=== PATIENT | male | born 1985 | race Caucasian/White ===

== ENCOUNTER → 2022-10-01 07:55 | Outpatient (BNVA) | payer OTHER, SELFPAY | PROVIDERS: PCP Family Medicine; Visit Provider Nurse Practitioner Family | DX: R06.83 Snoring (principal); R40.0 Somnolence | CPT/HCPCS: 99202 ==

== ENCOUNTER → 2022-11-19 09:09 | Outpatient (REF) | payer OTHER, SELFPAY | LOC: HO.SL 09:09 | PROVIDERS: PCP Family Medicine; Visit Provider Nurse Practitioner Family | DX: G47.33 Obstructive sleep apnea (adult) (pediatric) (principal); R40.0 Somnolence; R06.83 Snoring | CPT/HCPCS: 95806 ==

== ENCOUNTER → 2022-11-19 09:20 | Outpatient (BNV) | payer OTHER, SELFPAY | PROVIDERS: PCP Family Medicine; Visit Provider Internal Medicine | DX: G47.33 Obstructive sleep apnea (adult) (pediatric) (principal) | CPT/HCPCS: 95806 ==

== ENCOUNTER 2023-01-28 11:25 | Outpatient (AMB) | payer OTHER, SELFPAY ==
--- NOTE | 2023-01-28 11:29 | MHC.OFFVIS ---
Intake Vital Signs 01/28/23 11:31 Weight 215 lb 6 oz BP 110/68 Blood Pressure Location Rt brachial Position Sitting Pulse 75 Pulse Source Pulse Oximeter Pulse Oximetry (%) 98 Oxygen Delivery Method Room Air Intake Visit Reasons: 2m follow up snoring - confirmed Intake Note: Follow up malgorzata [employer] Lead Required: No Allergies No Known Allergies Allergy (Verified 01/28/23 11:30) HPI HPI Comments History of Present Illness Details 37 y/o male patient presents for follow up of sleep study. The home sleep study result was significant for moderate degree of sleep apnea. The AHI was 16/hr and oxygen joana was 79%. The total duration of O2 sat below 88% was 7 min. Pt started APAP [id number]. The CPAP compliance and therapy response (12/29/22-01/27/23) reviewed. The usage days 97% and the average usage hours 7 hrs and 48 min. The max pressure is 11 and AHI was 6/hr. Pt reports he sleeps better with CPAP for 7-8 hours, feels more refreshed. Daytime sleepiness has improve. [facility] Surgical History (Updated 10/01/22 @ 08:05 by Samina Heard CMA) H/O knee surgery Social History (Updated 01/28/23 @ 11:30 by Samina Heard CMA) Housing: House Alcohol intake: current Patient Tobacco Use Status: Never used Tobacco e-Cigarette/Vaping Use: Never Used service: Yes Current occupational status: employed Current occupation: [employer] Cognitive needs: No Hearing needs: No Vision needs: No Review of Systems Const All systems reviewed & are unremarkable except as noted in HPI and below ENT Reports Normal hearing present Neuro Reports Normal hearing present Physical Exam Vital Signs: Last Vital Signs Pulse 75 01/28/23 11:31 BP 110/68 01/28/23 11:31 Pulse Ox 98 01/28/23 11:31 Oxygen Delivery Method Room Air 01/28/23 11:31 Const General: cooperative and healthy appearing Nutritional Appearance: average body habitus Orientation/consciousness: patient oriented x3 Limitations: no limitations HEENT Throat: Yes other (mallampati grade 2) Neck Neck: Yes full ROM and Yes supple Resp Effort & Inspection: normal respiratory effort and able to speak in complete sentences Neuro General: patient oriented x3, gait normal, tone normal and moves all extremities Cranial nerves: Yes Bilaterally intact EOM present, Yes Normal facial strength present, Yes Midline tongue present, Yes Symmetric palate elevation present, Yes Normal hearing present, Yes Ability to bilaterally rotate head present and Yes Ability to bilaterally elevate shoulders present Cognition (Neuro): normal cognition Gait exam (Neuro): Normal gait present Motor exam (neuro): 5/5 motor strength present throughout, Pronator motor function not present and no tremor noted Psych Appearance: grossly normal Mental Status: mental status grossly normal Speech and movement: Normal speech and movement present Affect: normal affect Attitude: cooperative Assessment & Plan Assessment & Plan (1) MALGORZATA on CPAP: Comment: A moderate degree of sleep apnea. The AHI was 16/hr and oxygen joana was 79%. Code(s): G47.33 - Obstructive sleep apnea (adult) (pediatric) Plan Advised patient to continue to use APAP [id number] as patient experiences good clinical effects including improved sleep quality and daytime sleepiness has improved. Stressed compliance, use CPAP nightly and more than 4 hrs. Coding Level of Care Code Est Pt Level 3 (93879) Diagnoses MALGORZATA on CPAP G47.33
[2023-01-28 11:31] VITALS: BP 110/68; PULSE 75; O2SAT 98
== END 2023-01-28 11:49 | disposition home or self-care (01) ==
PROVIDERS: PCP Internal Medicine; Visit Provider Nurse Practitioner Family
DX: G47.33 Obstructive sleep apnea (adult) (pediatric) (principal)
CPT/HCPCS: 99213

== ENCOUNTER → 2023-01-28 11:25 | Outpatient (BNVA) | payer OTHER, SELFPAY | PROVIDERS: Visit Provider Nurse Practitioner Family | DX: G47.33 Obstructive sleep apnea (adult) (pediatric) (principal) | CPT/HCPCS: 99212 ==

== ENCOUNTER 2024-02-18 11:50 | Outpatient (REF) | payer OTHER, SELFPAY ==
[2024-02-18 19:07] LABS: Influenza A PCR NEGATIVE (Negative); Influenza B PCR NEGATIVE (Negative); Resp Syncy Virus RNA Qual PCR NEGATIVE (Negative); SARS COV2 PCR INHOUSE NEGATIVE (Negative)
== END 2024-02-18 11:51 | disposition home or self-care (01) ==
LOC: HO.LAB 11:50
PROVIDERS: Physician Assistant; PCP Internal Medicine
DX: J06.9 Acute upper respiratory infection, unspecified (principal)
CPT/HCPCS: 0241U; 99212

== ENCOUNTER 2024-02-18 11:50 | Outpatient (AMB) | payer OTHER, SELFPAY ==
--- NOTE | 2024-02-18 11:55 | AM.OFFWIN_ITS ---
Intake Vital Signs 02/18/24 11:58 Height 6 ft Weight 205 lb BMI 27.8 BP 138/90 H Blood Pressure Location Lt brachial Position Sitting Pulse 85 Pulse Source Pulse Oximeter Temp 98.8 F Temp Source Oral Pulse Oximetry (%) 98 Oxygen Delivery Method Room Air Intake Visit Reasons: EP Congestion, head pressure Intake Note: Patient here for head pressure, congestion and slight nausea that started yesterday. Patient Tobacco Use Status: Never used Tobacco Allergies No Known Allergies Allergy (Verified 02/18/24 11:59) Do you need a note to return to daycare/school/sports/work: Yes HPI HPI Comments History of Present Illness Details Patient is a 38-year-old male complaining of 1 day of some nasal congestion, fatigue, head pressure and slight nausea. He denies sore throat, fevers, sinus pain, ear pain or headaches. He has not taken any medications to try to make himself feel better. He has not tested for COVID at home. He tells me his is sick with a migraine and some similar symptoms in his son was just diagnosed with an ear infection. He does tell me wanted his work colleagues just returned from having strep throat. [facility] Surgical History (Updated 10/01/22 @ 08:05 by Samina Heard CMA) H/O knee surgery Social History (Updated 01/28/23 @ 11:30 by Samina Heard CMA) Housing: House Alcohol intake: current Patient Tobacco Use Status: Never used Tobacco e-Cigarette/Vaping Use: Never Used service: Yes Current occupational status: employed Current occupation: [employer] Cognitive needs: No Hearing needs: No Vision needs: No Review of Systems Const All systems reviewed & are unremarkable except as noted in HPI and below Physical Exam Vital Signs: Last Vital Signs Temp 98.8 F 02/18/24 11:58 Pulse 85 02/18/24 11:58 BP 138/90 H 02/18/24 11:58 Pulse Ox 98 02/18/24 11:58 Oxygen Delivery Method Room Air 02/18/24 11:58 BMI result Body Mass Index 27.8 Const General: cooperative, healthy appearing, comfortable and no acute distress Orientation/consciousness: patient oriented x3 Limitations: no limitations HEENT Head: Yes normal to inspection Ears: hearing grossly normal bilaterally, external ears normal and TM's normal bilaterally General nose exam: Normal external nose present, Normal nares present and No nasal discharge present Face and sinus: Yes normal facial exam and Yes sinuses nontender Mouth: Normal oral and palatal mucosa present and moist mucous membranes Throat: Yes tonsils normal, Yes uvula midline and Yes posterior oropharynx abnormal (Erythema; exudates on left) Eyes General: appearance normal, both eyes and all related structures Neck Neck: Yes normal visual inspection Resp Effort & Inspection: normal respiratory effort, able to speak in complete sentences, no respiratory distress, not tachypneic, no tripod positioning and no use of accessory muscles Auscultation: clear to auscultation bilaterally Cardio Rate: regular rate Rhythm: regular rhythm Heart sounds: normal S1 and S2 Skin General skin exam: no rashes or lesions noted Neuro General: patient oriented x3 Extrem General: Yes normal to inspection and Yes no clubbing, cyanosis or edema Assessment & Plan Assessment & Plan (1) Strep pharyngitis: Code(s): J02.0 - Streptococcal pharyngitis Plan: Rapid strep is negative however as patient did have an exposure at work and there exudates on his tonsils, Centor Score 2 (11-17% probability of strep) but has only been sick since last night, we will prescribe amoxicillin. We had already sent flu COVID and RSV test. Plan See above Orders: Orders SARS-CoV2/FLU/RSV Today J06.9 - Acute upper respiratory infection, unspecified AMB Rapid Strep Screen Today Z13.9 - Encounter for screening, unspecified Medications: New amoxicillin 500 mg PO Q12H 20 tabs 0RF Coding Level of Care Code Est Pt Level 3 (66441) Diagnoses Strep pharyngitis J02.0
[2024-02-18 11:58] VITALS: BP 138/90; PULSE 85; TEMP 37.1; O2SAT 98; BMI 27.8
== END 2024-02-18 12:25 | disposition home or self-care (01) ==
PROVIDERS: PCP Internal Medicine; Visit Provider Physician Assistant
DX: J02.0 Streptococcal pharyngitis (principal)

== ENCOUNTER 2024-03-22 15:38 | Outpatient (AMB) | payer OTHER, SELFPAY ==
[2024-03-22 15:40] VITALS: BMI 27.8
--- NOTE | 2024-03-22 15:40 | A.OFFVIS_ITS ---
Vital Signs 03/22/24 15:40 Height 6 ft Weight 205 lb BMI 27.8 Intake Visit Reasons: 1 yr f/u-Snoring Intake Note: Patient presents for snoring Allergies No Known Allergies Allergy (Verified 03/22/24 15:41) Medication List - Last Reconciled 03/22/24 by Billie Lao PA-C amoxicillin 500 mg PO Q12H HPI Comments Details: 37 y/o male patient presents for follow up of sleep apnea. The home sleep study result was significant for moderate degree of sleep apnea, Feb 2023. The AHI was 16/hr and oxygen joana was 79%. The total duration of O2 sat below 88% was 7 min. Pt started APAP [id number]. The CPAP compliance and therapy response (12/23/2023- 03/21/24) reviewed. The usage days 67% and the average usage hours 5 hrs and 23 min. The max pressure is 10.5 and AHI was 5.1/hr. Pt reports he sleeps better with CPAP for 7-8 hours, feels more refreshed. Daytime sleepiness has improve, snoring has significantly decreased. Denies headaches, parasomnias, restless leg activity. The pressures are good, he cleans the mask daily, changes filters and uses distilled water. He had strep Feb and did not use the CPAP for that one week. REPLACED BY [facility] Surgical History H/O knee surgery Social History Housing: House Alcohol intake: current Patient Tobacco Use Status: Never used Tobacco e-Cigarette/Vaping Use: Never Used service: Yes Current occupational status: employed Current occupation: [employer] Cognitive needs: No Hearing needs: No Vision needs: No Review of Systems Const All systems reviewed & are unremarkable except as noted in HPI and below Physical Exam Vital Signs: BMI result Body Mass Index 27.8 Const General: cooperative, comfortable and no acute distress Nutritional Appearance: average body habitus Orientation/consciousness: patient oriented x3 HEENT Face and sinus: Yes normal facial exam and Yes face symmetric Eyes Pupils: Equal, round and reactive pupils present, Pupils normal by confrontation and Pupil accommodation reflex normal Neck Neck: Yes full ROM and Yes supple Resp Effort & Inspection: normal respiratory effort and able to speak in complete sentences Neuro General: patient oriented x3 Cranial nerves: Yes Equal, round and reactive pupils present, Yes Normal accommodation reflex present, Yes Normal facial strength present, Yes Midline tongue present, Yes Symmetric palate elevation present, Yes Ability to bilaterally rotate head present and Yes Ability to bilaterally elevate shoulders present Gait exam (Neuro): Normal gait present Motor exam (neuro): 5/5 motor strength present throughout Assessment & Plan Assessment & Plan (1) ELLEN on CPAP: Comment: A moderate degree of sleep apnea. The AHI was 16/hr and oxygen joana was 79%. Code(s): G47.33 - Obstructive sleep apnea (adult) (pediatric) Category: Medical Plan Continue CPAP use daily for moderate sleep apnea as patient is experiencing good clinical effects Follow up in a year or call the office if you have any questions. Contact [facility] for additional supplies. Coding Level of Care Code Est Pt Level 3 (78512) Diagnoses ELLEN on CPAP G47.33
== END 2024-03-22 16:09 | disposition home or self-care (01) ==
PROVIDERS: PCP Family Medicine; Visit Provider Physician Assistant Medical
DX: G47.33 Obstructive sleep apnea (adult) (pediatric) (principal)
CPT/HCPCS: 99213

== ENCOUNTER → 2024-03-22 15:38 | Outpatient (BNVA) | payer OTHER, SELFPAY | PROVIDERS: Absent Provider Psychiatry & Neurology Neurology; PCP Family Medicine; Visit Provider Psychiatry & Neurology Neurology | DX: G47.33 Obstructive sleep apnea (adult) (pediatric) (principal) | CPT/HCPCS: 99212 ==

== ENCOUNTER 2024-05-17 11:23 | Outpatient (AMB) | payer OTHER, SELFPAY ==
--- NOTE | 2024-05-17 12:05 | AM.OFFWIN_ITS ---
Intake Vital Signs 05/17/24 12:06 Height 6 ft Weight 205 lb BMI 27.8 BP 138/90 H Blood Pressure Location Rt brachial Position Sitting Pulse 87 Pulse Source Pulse Oximeter Temp 98.1 F Temp Source Oral Pulse Oximetry (%) 97 Oxygen Delivery Method Room Air Intake Visit Reasons: EP-upper respiratory infection Intake Note: Patient here cough, congestion, SOB, slight wheezing,chills which has been ongoing for about 1 1/2 week. Patient Tobacco Use Status: Never used Tobacco Allergies No Known Allergies Allergy (Verified 05/17/24 12:07) Do you need a note to return to daycare/school/sports/work: Yes HPI HPI Comments History of Present Illness Details History - The patient is a 38-year-old male pres enting with upper respiratory symptoms, cough, and shortness of breath persisting for 10 days. - Symptoms initially improved but became worse, manifesting as a persistent cough that disrupts sleep and causes chest congestion. - Mild shortness of breath and slight wh eezing are reported. - The patient denies asthma or Chronic O bstructive Pulmonary Disease (COPD) h istory and has not observed a fever. - DayQuil and other [id number] med ications provided minimal relief. - The patient denies significant headach es, sinus pain, or ear pain, but notes a general sensation of congestion. Physical Exam General: Cooperative, healthy appearing, comfortable and no acute distress Orientation/consciousness: Patient oriented x3 Limitations: No limitations Head: Normal to inspection Ears: Hearing grossly normal bilaterally, external ears normal and TM's normal right, scant fluid left TM Nose: Normal external nose present, Normal nares present and No nasal discharge present Face and sinus: Normal facial exam and Yes sinuses nontender Mouth: Normal oral and palatal mucosa present and moist mucous membranes Throat: Yes tonsils normal, Yes uvula midline. Posterior oropharynx erythema Eyes: Appearance normal, both eyes and all related structures Neck: Normal visual inspection Respiratory: Clear to auscultation bilaterally. Normal respiratory effort, able to speak in complete sentences, Actively coughing, no respiratory distress, not tachypneic, no tripod positioning and no use of accessory muscles Cardiovascular: Regular rate and rhythm. Normal S1 and S2 Skin: No rashes or lesions noted Neuro: Patient oriented x3 Extremities: Normal to inspection and Yes no clubbing, cyanosis or edema [facility] Surgical History H/O knee surgery Social History Housing: House Alcohol intake: current Patient Tobacco Use Status: Never used Tobacco e-Cigarette/Vaping Use: Never Used service: Yes Current occupational status: employed Current occupation: [employer] Cognitive needs: No Hearing needs: No Vision needs: No Review of Systems Const All systems reviewed & are unremarkable except as noted in HPI and below Physical Exam Vital Signs: Last Vital Signs Temp 98.1 F 05/17/24 12:06 Pulse 87 05/17/24 12:06 BP 138/90 H 05/17/24 12:06 Pulse Ox 97 05/17/24 12:06 Oxygen Delivery Method Room Air 05/17/24 12:06 BMI result Body Mass Index 27.8 Assessment & Plan Assessment & Plan (1) Lower respiratory infection (e.g., bronchitis, pneumonia, pneumonitis, pulmonitis): Code(s): J22 - Unspecified acute lower respiratory infection Plan: Plan Testing for influenza, COVID-19, and Respiratory Syncytial Virus RSV was conducted to identify any viral cause. A prescription for a Z-Adán Azithromycin was given to address potential walking pneumonia, with its dual role as an antimicrobial and an anti-inflammatory agent. To aid in breathing and further alleviate shortness of breath, a tapering course of steroids was advised. Tessalon Perles were prescribed for cough management during the night. The patient was instructed to take a decongestant during the day and prioritize hydration and rest. Sick leave for at least a day was recommended to allow recovery and prevent transmission to others. Patient was informed and verbally consented to the use of an ambient scribe for clinic note documentation during this visit Orders: Orders SARS-CoV2/FLU/RSV Today R09.89 - Other specified symptoms and signs involving the circulatory and respiratory systems Medications: New azithromycin For 250 mg dose pack: take 500 mg today (day 1), then 250 mg for 4 days (days 2-5) PO 6 tabs 0RF methylprednisolone PO PER PKG DIR for 6 days 21 ea 0RF benzonatate 200 mg PO TID PRN 14 caps 0RF cough Coding Level of Care Code Est Pt Level 4 (57665) Diagnoses Lower respiratory infection (e.g., bronchitis, pneumonia, pneumonitis, pulmonitis) J22
[2024-05-17 12:06] VITALS: BP 138/90; PULSE 87; TEMP 36.7; O2SAT 97; BMI 27.8
== END 2024-05-17 12:26 | disposition home or self-care (01) ==
PROVIDERS: PCP Family Medicine; Visit Provider Physician Assistant
DX: J22 Unspecified acute lower respiratory infection (principal)

== ENCOUNTER 2025-03-21 15:48 | Outpatient (AMB) | payer OTHER, SELFPAY ==
[2025-03-21 15:49] VITALS: BP 136/84; PULSE 88; O2SAT 98; BMI 29.3
--- NOTE | 2025-03-21 15:49 | MHC.OFFVIS ---
Vital Signs 03/21/25 15:49 Height 6 ft Weight 216 lb 4 oz BMI 29.3 BP 136/84 Blood Pressure Location Rt brachial Position Sitting Pulse 88 Pulse Source Pulse Oximeter Pulse Oximetry (%) 98 Oxygen Delivery Method Room Air Intake Visit Reasons: 1 yr flu (CONF.) Intake Note: Patient presents follow up ELLEN. Compliance in chart(85/90days, >=4hrs-87%, Average Usage-7hr 10min, Med Pressure-6.8, Med Leaks-0.0, AHI-2.7). Allergies No Known Allergies Allergy (Verified 03/21/25 15:51) HPI Comments Details: 39 year old male presents for a f/u of ELLEN. The home sleep study result was significant for moderate degree of sleep apnea. The AHI was 16/hr and oxygen joana was 79%. The total duration of O2 sat below 88% was 7 min. Pt started APAP [id number]. The CPAP compliance and therapy response (12/2024- 03/2025) reviewed. The usage days 85/90 days and >4 hours is 87%, average usage is 7 hrs and 10 min. The max pressure is 6.8cmH20 and Leaks are 0. AHI is 2.7. Pt reports he sleeps better with CPAP for 7-8 hours, feels more refreshed. Daytime sleepiness has improve, snoring is eliminated. His mask hose on the freedom mask leaks sometimes, not bothersome. Denies headaches, parasomnias, restless leg activity. The pressures are good, he cleans the mask daily, changes filters and uses distilled water. [facility] Surgical History H/O knee surgery Social History Housing: House Alcohol intake: current Patient Tobacco Use Status: Never used Tobacco e-Cigarette/Vaping Use: Never Used service: Yes Current occupational status: employed Current occupation: [employer] Cognitive needs: No Hearing needs: No Vision needs: No Physical Exam Vital Signs: Last Vital Signs Pulse 88 03/21/25 15:49 BP 136/84 03/21/25 15:49 Pulse Ox 98 03/21/25 15:49 Oxygen Delivery Method Room Air 03/21/25 15:49 BMI result Body Mass Index 29.3 Const General: cooperative, comfortable and no acute distress Nutritional Appearance: average body habitus Orientation/consciousness: patient oriented x3 HEENT Face and sinus: Yes normal facial exam and Yes face symmetric Eyes Pupils: Equal, round and reactive pupils present, Pupils normal by confrontation and Pupil accommodation reflex normal Neck Neck: Yes full ROM and Yes supple Resp Effort & Inspection: normal respiratory effort and able to speak in complete sentences Neuro General: patient oriented x3 Cranial nerves: Yes Equal, round and reactive pupils present, Yes Normal accommodation reflex present, Yes Normal facial strength present, Yes Midline tongue present, Yes Symmetric palate elevation present, Yes Ability to bilaterally rotate head present and Yes Ability to bilaterally elevate shoulders present Gait exam (Neuro): Normal gait present Motor exam (neuro): 5/5 motor strength present throughout Psych Appearance: grossly normal Mental Status: mental status grossly normal Speech and movement: Normal speech and movement present Thought content: Normal thought content present Results Reviewed Results Reviewed: The CPAP compliance and therapy response (12/2024- 03/2025) reviewed. The usage days 85/90 days and >4 hours is 87%, average usage is 7 hrs and 10 min. The max pressure is 6.8cmH20 and Leaks are 0. AHI is 2.7. Assessment & Plan Assessment & Plan (1) ELLEN on CPAP: Comment: A moderate degree of sleep apnea. The AHI was 16/hr and oxygen joana was 79%. Code(s): G47.33 - Obstructive sleep apnea (adult) (pediatric) Category: Medical Plan Continue CPAP use daily for moderate sleep apnea as patient is experiencing good clinical effects Follow up in a year or call the office if you have any questions, may f/u in 6 months if having any difficulties. Patient Instructions: Sleep Hygiene provided: set a scheduled bedtime and wake time to help regulate the circadian rhythm and balance the release of pituitary hormones. Sleep in a dark room, temperatures below 68 degrees, and no devices n bed. Limit caffeinated products 6 hours prior to bed, and limit fluids 2-4 hours prior to bed. Gentle night yoga, diffusing essential oils, and playing soft music can be relaxing. Coding Level of Care Code Est Pt Level 4 (82802) Diagnoses ELLEN on CPAP G47.33
== END 2025-03-21 16:02 | disposition home or self-care (01) ==
LOC: HO.HSMS 15:49
PROVIDERS: PCP Family Medicine; Visit Provider Physician Assistant Medical
DX: G47.33 Obstructive sleep apnea (adult) (pediatric) (principal)
CPT/HCPCS: 99214

== ENCOUNTER → 2025-03-21 15:48 | Outpatient (BNVA) | payer OTHER, SELFPAY | PROVIDERS: PCP Family Medicine; Visit Provider Physician Assistant Medical | DX: G47.33 Obstructive sleep apnea (adult) (pediatric) (principal) | CPT/HCPCS: 99212 ==